=== PATIENT | female | born 1970 | race Caucasian/White ===

== ENCOUNTER 2016-03-14 13:15 | Emergency (ER) | payer OTHER ==
[~2016-03-14] VITALS: Ht 167.6 cm; Wt 115.0 kg
[~2016-03-14 13:15] MED LIST: ADVAIR 250/501 DISK IH; ALBUTEROL SULF8.5 GM IH; AMLODIPINE BESYL5 MG PO; ANTIVERT25 MG PO; ASPIRIN EC325 MG PO; ATARAX,VISTARIL25 MG PO; ERGOCALCIF50000 UNIT PO; GLUCOPHAGE XR750 MG PO; KENALOG,ARISTOC80 GM TP; MONTELUKAST SOD10 MG PO; MOTRIN IB200 MG PO; MOTRIN600 MG PO; NAPROXEN500 MG PO; NIX 5% CREAM60 GM TP; PEPCID40 MG PO; PREDNISONE20 MG PO; SKELAXIN800 MG PO; SYMBICORT60 INHALAT IH; ZOLPIDEM TARTRA10 MG PO
[2016-03-14 14:30] LABS: HEMATOCRIT 34.3 % (36.0-46.0); MCH 21.7 PG (29.0-34.0); MCHC 31.8 G/DL (30.0-36.0); MCV 68.3 FL (83-99); MEAN PLAT.VOLUME 9.2 uM^3 (9.5-12.4); PLATELET COUNT 389 K/uL (156-360); RBC DIS.WIDTH-CV 15.7 % (11.8-14.6); RBC DIS.WIDTH-SD 38.4 % (39-53); RED BLOOD COUNT 5.02 M/uL (3.80-5.20); WHITE BLOOD COUNT 7.9 K/uL (4.1-10.2)
[2016-03-14 14:48] LABS: CHLORIDE 103 mEq/L (99-109); POTASSIUM 4.3 mEq/L (3.7-5.4); SODIUM 137 mEq/L (136-147)
[2016-03-14 14:50] LABS: GLUCOSE 99 mg/dL (70-99)
[2016-03-14 14:51] LABS: ANION GAP 7 MEQ/L (2-14)
[2016-03-14 14:52] LABS: TOTAL BILIRUBIN 0.6 mg/dL (0.0-1.0)
[2016-03-14 14:54] LABS: ALKALINE PHOSPHATASE 69 IU/L (3-129); GFR ESTIMATE (CALCULATED) > 59 mL/min/
[2016-03-14 14:55] LABS: UREA NITROGEN (BUN) 9 mg/dL (9-23)
[2016-03-14 15:02] LABS: QUANTITATIVE HCG < 4.0 MIU/ML
[2016-03-14 15:30] LABS: ADD MIUA? NO; BILIRUBIN NEGATIVE; BLOOD NEGATIVE; COLOR YELLOW ((YELLOW)); GLUCOSE (STRIP) NEGATIVE; KETONES NEGATIVE; LEUKOCYTES NEGATIVE; NITRITE NEGATIVE; PH, URINE 5.5 (5-8); PROTEIN (STRIP) NEGATIVE; UCUL ADDED? NO; UROBILINOGEN 0.2 MG/DL (0.2-1.0)
[2016-03-14] MEDS ORDERED: NAPROXEN500 MG PO (18:21)
[2016-03-14] MEDS ORDERED: FLEXERIL10 MG PO (18:21)
[2016-03-14] MEDS ORDERED: REGLAN5 MG PO (18:21)
[2016-03-14 18:44] VITALS: BP 133/77
== END 2016-03-14 18:45 | disposition home or self-care (01) ==
LOC: EME 13:15
PROVIDERS: Physician Assistant
DX: S29.012A Strain of muscle and tendon of back wall of thorax, initial encounter (principal); S80.11XA Contusion of right lower leg, initial encounter; R11.0 Nausea; R19.7 Diarrhea, unspecified; R06.02 Shortness of breath; J45.909 Unspecified asthma, uncomplicated; E11.9 Type 2 diabetes mellitus without complications; I10 Essential (primary) hypertension; Z79.84 Long term (current) use of oral hypoglycemic drugs
CPT/HCPCS: 71275; 74176; 80053; 81003; 84702; 85027; 85379; 93971; 99281; 99284; J1885; J7120

== ENCOUNTER 2016-06-03 20:01 | Emergency (ER) | payer OTHER ==
[~2016-06-03] VITALS: Ht 167.6 cm; Wt 120.5 kg
[~2016-06-03 20:01] MED LIST changes: +FLEXERIL10 MG PO; +REGLAN5 MG PO
[2016-06-03 21:59] VITALS: BP 143/84
== END 2016-06-03 21:59 | disposition home or self-care (01) ==
LOC: EME 20:01 → RME 20:01
DX: R51 Headache (principal); I10 Essential (primary) hypertension; E11.9 Type 2 diabetes mellitus without complications; J45.909 Unspecified asthma, uncomplicated
CPT/HCPCS: 99281; 99284; J1200; J1885; J2765; J7030

== ENCOUNTER → 2016-08-25 | Outpatient (CLI) | payer OTHER ==
[~2016-08-25] VITALS: Ht 167.6 cm; Wt 116.1 kg
[~2016-08-25] MED LIST changes: +AMLODIPINE-BEN1 EAC3 PO; +IRON325 MG PO; +SINGULAIR10 MG PO
[2016-08-25 08:48] LABS: POINT-OF-CARE METER ID UU14174212
== END | disposition home or self-care (01) ==
LOC: AMB 08:00
PROVIDERS: Internal Medicine
DX: K29.70 Gastritis, unspecified, without bleeding (principal); K22.10 Ulcer of esophagus without bleeding; K44.9 Diaphragmatic hernia without obstruction or gangrene; K57.30 Diverticulosis of large intestine without perforation or abscess without bleeding; D64.9 Anemia, unspecified; J45.909 Unspecified asthma, uncomplicated; E11.9 Type 2 diabetes mellitus without complications; R94.31 Abnormal electrocardiogram [ECG] [EKG]; Z83.2 Family history of diseases of the blood and blood-forming organs and certain disorders involving the immune mechanism; Z80.1 Family history of malignant neoplasm of trachea, bronchus and lung; Z82.5 Family history of asthma and other chronic lower respiratory diseases; Z83.3 Family history of diabetes mellitus; Z82.49 Family history of ischemic heart disease and other diseases of the circulatory system; Z79.84 Long term (current) use of oral hypoglycemic drugs; Z88.0 Allergy status to penicillin
CPT/HCPCS: 82948; 88305; 88342 TC; 93005; J2704

== ENCOUNTER 2016-11-15 14:50 | Emergency (ER) | payer OTHER ==
[~2016-11-15] VITALS: Ht 167.6 cm; Wt 112.7 kg
[2016-11-15 15:48] LABS: PROTHROMBIN TIME 11.1 SEC (10.2-12.9)
[2016-11-15 15:49] LABS: HEMATOCRIT 33.6 % (36.0-46.0); MCH 21.7 PG (29.0-34.0); MCHC 30.4 G/DL (30.0-36.0); MCV 71.5 FL (83-99); MEAN PLAT.VOLUME 9.8 uM^3 (9.5-12.4); PLATELET COUNT 339 K/uL (156-360); RBC DIS.WIDTH-CV 15.1 % (11.8-14.6); WHITE BLOOD COUNT 8.6 K/uL (4.1-10.2)
[2016-11-15 15:51] LABS: PTT 30.5 SEC (25-37)
[2016-11-15 15:54] LABS: CHLORIDE 104 mEq/L (99-109); POTASSIUM 4.1 mEq/L (3.7-5.4); SODIUM 140 mEq/L (136-147)
[2016-11-15 15:56] LABS: GLUCOSE 109 mg/dL (70-99)
[2016-11-15 15:57] LABS: ANION GAP 10 MEQ/L (2-14)
[2016-11-15 16:00] LABS: GFR ESTIMATE (CALCULATED) > 59 mL/min/; UREA NITROGEN (BUN) 16 mg/dL (9-23)
[2016-11-15 17:32] VITALS: BP 148/99
== END 2016-11-15 17:33 | disposition home or self-care (01) ==
LOC: EME 14:50
PROVIDERS: Physician Assistant Medical
DX: M79.89 Other specified soft tissue disorders (principal); M79.661 Pain in right lower leg; J45.909 Unspecified asthma, uncomplicated; I10 Essential (primary) hypertension; E11.9 Type 2 diabetes mellitus without complications; Z79.84 Long term (current) use of oral hypoglycemic drugs
CPT/HCPCS: 80048; 85027; 85610; 85730; 93971; 99281; 99283; J1885

== ENCOUNTER 2017-01-16 17:53 | Emergency (ER) | payer OTHER ==
[~2017-01-16] VITALS: Ht 167.6 cm; Wt 111.3 kg
[2017-01-16 18:14] VITALS: BP 143/90
[2017-01-16] MEDS ORDERED: MOTRIN600 MG PO (19:31)
== END 2017-01-16 19:40 | disposition home or self-care (01) ==
LOC: EME 17:53
DX: S16.1XXA Strain of muscle, fascia and tendon at neck level, initial encounter (principal); S80.01XA Contusion of right knee, initial encounter; S39.012A Strain of muscle, fascia and tendon of lower back, initial encounter; V43.52XA Car driver injured in collision with other type car in traffic accident, initial encounter; J45.909 Unspecified asthma, uncomplicated; E11.9 Type 2 diabetes mellitus without complications; Z79.84 Long term (current) use of oral hypoglycemic drugs; Z88.5 Allergy status to narcotic agent; Z88.0 Allergy status to penicillin; Z88.6 Allergy status to analgesic agent
CPT/HCPCS: 73564; 99281; 99283

== ENCOUNTER 2017-04-13 05:52 | Day surgery (SDC) | payer OTHER ==
[~2017-04-13] VITALS: Ht 167.6 cm; Wt 115.2 kg
[~2017-04-13 05:52] MED LIST changes: +NORVASC5 MG PO
[2017-04-13 06:30] VITALS: BP 138/88
[2017-04-13 10:50] VITALS: BP 146/83
[2017-04-13 12:08] VITALS: BP 142/80
[2017-04-13 13:05] VITALS: BP 157/82
== END 2017-04-13 13:15 | disposition home or self-care (01) ==
LOC: SDC 05:52
PROVIDERS: Orthopaedic Surgery
PROC: 0SBC4ZZ Excision of Right Knee Joint, Percutaneous Endoscopic Approach (ICD-10-PCS; principal; 2017-04-13)
DX: S83.241A Other tear of medial meniscus, current injury, right knee, initial encounter (principal); X58.XXXA Exposure to other specified factors, initial encounter; S83.411A Sprain of medial collateral ligament of right knee, initial encounter; I10 Essential (primary) hypertension; J45.909 Unspecified asthma, uncomplicated; E11.9 Type 2 diabetes mellitus without complications; Z79.84 Long term (current) use of oral hypoglycemic drugs; Z86.73 Personal history of transient ischemic attack (TIA), and cerebral infarction without residual deficits; Z88.0 Allergy status to penicillin
CPT/HCPCS: 82948; J0131; J1885; J2250; J2795; J3010